=== PATIENT | male | born 1970 | race Caucasian/White ===

== ENCOUNTER 2023-04-23 08:22 | Emergency (ER) | payer BC ==
[2023-04-23] MEDS ORDERED: Sodium Chloride 0.9% 10 ML Syringe FLUSH PRN (08:48)
[2023-04-23] MEDS ORDERED: Sodium Chloride 0.9% 1,000 ML IV ONE (08:48)
[2023-04-23] MEDS ORDERED: Sodium Chloride 0.9% 2.5 ML Syringe FLUSH PRN (08:48)
[2023-04-23] MEDS ORDERED: Ondansetron 4 MG/2 ML SDV IVPUSH ONE (08:50)
[2023-04-23] MEDS ORDERED: Pantoprazole 80 MG in Sodium Chloride 0.9% 10 ML IVPUSH ONE (08:51)
[2023-04-23] MEDS ORDERED: Ketorolac 30 MG/ML SDV IVPUSH ONE (08:51)
[2023-04-23 09:15] LABS: BASOPHILS ABSOLUTE AUTO 0.09 K/uL (0.00-0.20); BASOPHILS PERCENT AUTO 0.8 % (0.0-1.0); EOSINOPHILS ABSOLUTE AUTO 0.13 K/uL (0.00-0.45); EOSINOPHILS PERCENT AUTO 1.2 % (0.0-6.0); HEMATOCRIT 44.6 % (42.0-52.0); HEMOGLOBIN 15.8 g/dL (14.0-18.0); IMMATURE GRAN ABSOLUTE AUTO 0.12 K/uL (0.00-0.05); IMMATURE GRAN PERCENT AUTO 1.1 % (0.0-0.4); LYMPHOCYTES ABSOLUTE AUTO 1.54 K/uL (1.00-4.80); LYMPHOCYTES PERCENT AUTO 14.3 % (24.0-44.0); MEAN CORPUSCULAR HEMOGLOBIN 31.3 pg (28.0-32.0); MEAN CORPUSCULAR HGB CONC 35.4 g/dL (32.0-36.0); MEAN CORPUSCULAR VOLUME 88.5 fL (83.0-99.0); MEAN PLATELET VOLUME 10.1 fL (9.4-12.4); MONOCYTES PERCENT AUTO 7.4 % (0.0-8.0); NEUTROPHILS PERCENT AUTO 75.2 % (41.0-71.0); PLATELET COUNT,PLT 284 K/uL (150-400); RED BLOOD CELL COUNT 5.04 M/uL (4.52-5.90); WHITE BLOOD CELL COUNT,WBC 10.78 K/uL (3.9-11.3)
[2023-04-23 09:45] LABS: INR 0.96 (0.86-1.11); PTT,PARTIAL THROMBOPLSTIN TIME 28.9 SEC (23.9-30.7)
[2023-04-23 09:51] LABS: ALBUMIN 3.9 g/dL (3.4-5.0); BILIRUBIN TOTAL 0.4 mg/dL (0.2-1.0); CALCIUM 9.2 mg/dL (8.5-10.1); CARBON DIOXIDE,CO2 28.8 mmol/L (21.0-32.0); EST CRCL DRUG DOSING (CG) 79.75 mL/min; MAGNESIUM 1.6 mg/dL (1.8-2.4); POTASSIUM,K 4.7 mmol/L (3.5-5.1)
[2023-04-23] MEDS ORDERED: Iopamidol 755 MG/ML 500 ML Multipack Bottle IVPUSH STA (10:23)
[2023-04-23 11:43] LABS: APPEARANCE,URINE CLEAR; BILIRUBIN,URINE NEGATIVE (NEGATIVE); COLOR,URINE YELLOW; GLUCOSE,URINE NEGATIVE (NEGATIVE); KETONES,URINE NEGATIVE (NEGATIVE); LEUKOCYTE ESTERASE,URINE NEGATIVE (NEGATIVE); NITRITE,URINE NEGATIVE (NEGATIVE); OCCULT BLOOD,URINE NEGATIVE (NEGATIVE); PH,URINE 5.5 (5.0-8.0); PROTEIN,URINE NEGATIVE (NEGATIVE); UROBILINOGEN,URINE 0.2 EU/dL (<2.0)
[2023-04-23 13:08] VITALS: BP 136/93; PULSE 104
== END 2023-04-23 13:10 | disposition home or self-care (01) ==
LOC: MW.ED 08:56
DX: K57.32 Diverticulitis of large intestine without perforation or abscess without bleeding (principal)
CPT/HCPCS: 36415; 74177; 80053; 81003; 83690; 83735; 85025; 85610; 85730; 86850; 86900; 86901; 96361; 96374; 96375; 99284; C9113; J1885; J2405; J3490; J7030; Q9967

== ENCOUNTER 2023-08-20 22:35 | Emergency (ER) | payer BC ==
[2023-08-20] MEDS: Sodium Chloride 0.9% 2.5 ML Syringe FLUSH PRN (22:48)
[2023-08-20] MEDS: Sodium Chloride 0.9% 10 ML Syringe FLUSH PRN (22:48)
[2023-08-20 22:56] LABS: BASOPHILS ABSOLUTE AUTO 0.06 K/uL (0.00-0.20); BASOPHILS PERCENT AUTO 0.9 % (0.0-1.0); EOSINOPHILS ABSOLUTE AUTO 0.11 K/uL (0.00-0.45); EOSINOPHILS PERCENT AUTO 1.7 % (0.0-6.0); HEMATOCRIT 41.1 % (42.0-52.0); HEMOGLOBIN 14.7 g/dL (14.0-18.0); IMMATURE GRAN ABSOLUTE AUTO 0.11 K/uL (0.00-0.05); IMMATURE GRAN PERCENT AUTO 1.7 % (0.0-0.4); LYMPHOCYTES ABSOLUTE AUTO 1.82 K/uL (1.00-4.80); LYMPHOCYTES PERCENT AUTO 28.1 % (24.0-44.0); MEAN CORPUSCULAR HEMOGLOBIN 31.1 pg (28.0-32.0); MEAN CORPUSCULAR HGB CONC 35.8 g/dL (32.0-36.0); MEAN CORPUSCULAR VOLUME 87.1 fL (83.0-99.0); MONOCYTES ABSOLUTE AUTO 0.52 K/uL (0.00-0.80); NEUTROPHILS ABSOLUTE AUTO 3.86 K/uL (1.80-7.70); NEUTROPHILS PERCENT AUTO 59.6 % (41.0-71.0); PLATELET COUNT,PLT 268 K/uL (150-400); RED BLOOD CELL COUNT 4.72 M/uL (4.52-5.90); WHITE BLOOD CELL COUNT,WBC 6.48 K/uL (3.9-11.3)
[2023-08-20 23:38] LABS: A/G RATIO 0.9 (0.9-1.6); ALANINE AMINOTRANSFERASE,ALT 61 IU/L (14-63); ALBUMIN 3.2 g/dL (3.4-5.0); ALKALINE PHOSPHATASE 73 U/L (46-116); ASPARTATE AMNIOTRANSFERASE,AST 75 IU/L (15-37); BILIRUBIN TOTAL 0.3 mg/dL (0.2-1.0); BLOOD UREA NITROGEN,BUN 10 mg/dL (7.0-18.0); CALCIUM 8.1 mg/dL (8.5-10.1); CARBON DIOXIDE,CO2 23.3 mmol/L (21.0-32.0); CHLORIDE,CL 104 mmol/L (98-107); CREATININE 1.2 mg/dL (0.8-1.3); ETHANOL BLOOD MEDICAL 5 mg/dL; GLUCOSE RANDOM 141 mg/dL (74-106); LIPASE 30 U/L (16-77); MAGNESIUM 1.6 mg/dL (1.8-2.4); POTASSIUM,K 3.4 mmol/L (3.5-5.1); PROTEIN TOTAL,TP 6.6 g/dL (6.4-8.2); SODIUM,NA 141 mmol/L (136-148); TSH ULTRASENSITIVE 3.46 uIU/mL (0.36-3.74)
[2023-08-20 23:39] LABS: ESTIMATED GFR 74 mL/min (>60)
[2023-08-21] MEDS: Potassium Chloride 10% 20 MEQ/15 ML Soln 15 ML UD Cup PO ONE (00:02)
[2023-08-21] MEDS: Magnesium Sulfate/Water 2 GM in Premix Bag 1 BAG IV ONE (00:02)
[2023-08-21] MEDS: Lactated Ringers 1,000 ML IV ONE (00:33)
[2023-08-21 02:14] VITALS: BP 122/72; PULSE 99
== END 2023-08-21 02:13 | disposition home or self-care (01) ==
LOC: MW.ED 22:35
DX: R00.2 Palpitations (principal)
CPT/HCPCS: 36415; 71046; 80053; 80307; 82947; 83690; 83735; 84443; 84484; 85025; 85379; 96365; 99285; A9270; J3475; J3490; J7120; 93010; 99283

== ENCOUNTER 2023-10-25 07:11 | Day surgery (SDC) | payer BC ==
[2023-10-25] MEDS ORDERED: dexmedeTOMIDine HCl 200 MCG/2 ML SDV IV ONE (07:12)
[2023-10-25] MEDS: Lactated Ringers 1,000 ML IV SCH (07:43)
[2023-10-25] MEDS ORDERED: propofoL 50 ML ONE (09:15)
[2023-10-25] MEDS ORDERED: Propofol 200 MG/20 ML SDV ONE ×2 (09:29→09:40)
[2023-10-25 13:10] VITALS: BP 122/79; PULSE 78
== END 2023-10-25 10:27 | disposition home or self-care (01) ==
LOC: MW.SDS 07:11
PROVIDERS: ATTEND Surgery
DX: K63.5 Polyp of colon (principal); K21.9 Gastro-esophageal reflux disease without esophagitis; K57.30 Diverticulosis of large intestine without perforation or abscess without bleeding; I10 Essential (primary) hypertension; Z79.82 Long term (current) use of aspirin; Z79.899 Other long term (current) drug therapy
CPT/HCPCS: 43239; 45380; J2704; J7120; 00813; J3490

== ENCOUNTER 2024-03-25 08:14 | Emergency (ER) | payer BC ==
[2024-03-25] MEDS ORDERED: Sodium Chloride 0.9% 2.5 ML Syringe FLUSH PRN (08:34)
[2024-03-25] MEDS: Ketorolac 30 MG/ML SDV IVPUSH ONE (09:14)
[2024-03-25] MEDS: Sodium Chloride 0.9% 10 ML Syringe FLUSH PRN (09:15)
[2024-03-25] MEDS: Sodium Chloride 0.9% 1,000 ML IV ONE (09:15)
[2024-03-25 09:27] LABS: BASOPHILS ABSOLUTE AUTO 0.06 K/uL (0.00-0.20); BASOPHILS PERCENT AUTO 0.6 % (0.0-1.0); EOSINOPHILS ABSOLUTE AUTO 0.04 K/uL (0.00-0.45); EOSINOPHILS PERCENT AUTO 0.4 % (0.0-6.0); HEMATOCRIT 42.4 % (42.0-52.0); HEMOGLOBIN 14.9 g/dL (14.0-18.0); IMMATURE GRAN PERCENT AUTO 0.9 % (0.0-0.4); LYMPHOCYTES ABSOLUTE AUTO 1.05 K/uL (1.00-4.80); LYMPHOCYTES PERCENT AUTO 9.7 % (24.0-44.0); MEAN CORPUSCULAR HEMOGLOBIN 30.4 pg (28.0-32.0); MEAN CORPUSCULAR HGB CONC 35.1 g/dL (32.0-36.0); MEAN CORPUSCULAR VOLUME 86.5 fL (83.0-99.0); MEAN PLATELET VOLUME 10.2 fL (9.4-12.4); MONOCYTES ABSOLUTE AUTO 0.65 K/uL (0.00-0.80); NEUTROPHILS ABSOLUTE AUTO 8.87 K/uL (1.80-7.70); NEUTROPHILS PERCENT AUTO 82.4 % (41.0-71.0); PLATELET COUNT,PLT 274 K/uL (150-400); WHITE BLOOD CELL COUNT,WBC 10.77 K/uL (3.9-11.3)
[2024-03-25 09:29] LABS: APPEARANCE,URINE CLEAR; BILIRUBIN,URINE NEGATIVE (NEGATIVE); COLOR,URINE YELLOW; GLUCOSE,URINE NEGATIVE (NEGATIVE); KETONES,URINE NEGATIVE (NEGATIVE); LEUKOCYTE ESTERASE,URINE NEGATIVE (NEGATIVE); NITRITE,URINE NEGATIVE (NEGATIVE); OCCULT BLOOD,URINE NEGATIVE (NEGATIVE); PH,URINE 6.5 (5.0-8.0); PROTEIN,URINE NEGATIVE (NEGATIVE); UROBILINOGEN,URINE 0.2 EU/dL (<2.0)
[2024-03-25 10:01] LABS: A/G RATIO 1.2 (0.9-1.6); ALBUMIN 3.8 g/dL (3.4-5.0); BILIRUBIN TOTAL 0.3 mg/dL (0.2-1.0); CALCIUM 8.7 mg/dL (8.5-10.1); EST CRCL DRUG DOSING (CG) 78.86 mL/min; POTASSIUM,K 4.4 mmol/L (3.5-5.1); PROTEIN TOTAL,TP 7.1 g/dL (6.4-8.2)
[2024-03-25 10:15] LABS: CARBON DIOXIDE,CO2 28.4 mmol/L (21.0-32.0)
[2024-03-25 10:58] VITALS: BP 131/89; PULSE 78
== END 2024-03-25 10:57 | disposition home or self-care (01) ==
LOC: MW.ED 08:14
DX: R10.9 Unspecified abdominal pain (principal); I10 Essential (primary) hypertension; E66.9 Obesity, unspecified; Z87.891 Personal history of nicotine dependence; Z75.8 Other problems related to medical facilities and other health care
CPT/HCPCS: 36415; 74176; 80053; 81003; 83690; 85025; 96361; 96374; 99284; J1885; J3490; J7030

== ENCOUNTER 2024-10-11 17:39 | Emergency (ER) | payer BC ==
[2024-10-11] MEDS: Ketorolac 30 MG/ML SDV IVPUSH ONE (18:12)
[2024-10-11 18:17] LABS: BASOPHILS ABSOLUTE AUTO 0.06 K/uL (0.00-0.20); BASOPHILS PERCENT AUTO 0.7 % (0.0-1.0); EOSINOPHILS ABSOLUTE AUTO 0.13 K/uL (0.00-0.45); EOSINOPHILS PERCENT AUTO 1.5 % (0.0-6.0); HEMATOCRIT 42.9 % (42.0-52.0); HEMOGLOBIN 15.2 g/dL (14.0-18.0); IMMATURE GRAN ABSOLUTE AUTO 0.06 K/uL (0.00-0.05); IMMATURE GRAN PERCENT AUTO 0.7 % (0.0-0.4); LYMPHOCYTES ABSOLUTE AUTO 1.62 K/uL (1.00-4.80); LYMPHOCYTES PERCENT AUTO 18.8 % (24.0-44.0); MEAN CORPUSCULAR HEMOGLOBIN 30.5 pg (28.0-32.0); MEAN CORPUSCULAR HGB CONC 35.4 g/dL (32.0-36.0); MEAN CORPUSCULAR VOLUME 86.1 fL (83.0-99.0); MEAN PLATELET VOLUME 10.2 fL (9.4-12.4); MONOCYTES ABSOLUTE AUTO 0.58 K/uL (0.00-0.80); MONOCYTES PERCENT AUTO 6.7 % (0.0-8.0); NEUTROPHILS ABSOLUTE AUTO 6.18 K/uL (1.80-7.70); NEUTROPHILS PERCENT AUTO 71.6 % (41.0-71.0); PLATELET COUNT,PLT 237 K/uL (150-400); RED BLOOD CELL COUNT 4.98 M/uL (4.52-5.90); WHITE BLOOD CELL COUNT,WBC 8.63 K/uL (3.9-11.3)
[2024-10-11 18:53] LABS: A/G RATIO 1.3 (0.9-1.6); BILIRUBIN TOTAL 0.5 mg/dL (0.2-1.0); CALCIUM 8.6 mg/dL (8.5-10.1); CARBON DIOXIDE,CO2 27.8 mmol/L (21.0-32.0); CREATININE 1.3 mg/dL (0.8-1.3); EST CRCL DRUG DOSING (CG) 59.98 mL/min; POTASSIUM,K 3.8 mmol/L (3.5-5.1); PROTEIN TOTAL,TP 7.1 g/dL (6.4-8.2)
[2024-10-11] MEDS: Iopamidol 755 MG/ML 500 ML Multipack Bottle IVPUSH ONE (19:35)
[2024-10-11] MEDS: Cyclobenzaprine 10 MG Tab PO ONE (20:29)
[2024-10-11 20:32] VITALS: BP 121/89; PULSE 101
== END 2024-10-11 20:32 | disposition home or self-care (01) ==
LOC: MW.ED 17:39
DX: M54.2 Cervicalgia (principal); I10 Essential (primary) hypertension; E66.9 Obesity, unspecified; Z75.3 Unavailability and inaccessibility of health-care facilities; Z79.899 Other long term (current) drug therapy; Z68.37 Body mass index [BMI] 37.0-37.9, adult
CPT/HCPCS: 36415; 70491; 71045; 80053; 84443; 84484; 85025; 93005; 96374; 99285; J1885; Q9967; 93010; 99284

== ENCOUNTER 2025-03-13 11:42 | Emergency (ER) | payer BC ==
[2025-03-13 12:22] LABS: BASOPHILS ABSOLUTE AUTO 0.10 K/uL (0.00-0.20); BASOPHILS PERCENT AUTO 0.9 % (0.0-1.0); EOSINOPHILS ABSOLUTE AUTO 0.13 K/uL (0.00-0.45); EOSINOPHILS PERCENT AUTO 1.1 % (0.0-6.0); IMMATURE GRAN ABSOLUTE AUTO 0.12 K/uL (0.00-0.05); IMMATURE GRAN PERCENT AUTO 1.0 % (0.0-0.4); LYMPHOCYTES ABSOLUTE AUTO 1.77 K/uL (1.00-4.80); LYMPHOCYTES PERCENT AUTO 15.4 % (24.0-44.0); MEAN PLATELET VOLUME 9.9 fL (9.4-12.4); MONOCYTES ABSOLUTE AUTO 0.84 K/uL (0.00-0.80); MONOCYTES PERCENT AUTO 7.3 % (0.0-8.0); NEUTROPHILS ABSOLUTE AUTO 8.55 K/uL (1.80-7.70); NEUTROPHILS PERCENT AUTO 74.3 % (41.0-71.0); NRBC ABSOLUTE 0.00 K/uL (0.00-0.02); NRBC PERCENT 0.0 /100WBC (0.0-0.2); PLATELET COUNT,PLT 290 K/uL (150-400); RED BLOOD CELL COUNT 4.99 M/uL (4.52-5.90); WHITE BLOOD CELL COUNT,WBC 11.51 K/uL (3.9-11.3)
[2025-03-13 12:35] LABS: INR 0.95 (0.86-1.11)
[2025-03-13 13:00] LABS: A/G RATIO 1.1 (0.9-1.6); ALANINE AMINOTRANSFERASE,ALT 44.0 IU/L (14-63); ASPARTATE AMNIOTRANSFERASE,AST 21.0 IU/L (15-37); BILIRUBIN TOTAL 0.4 mg/dL (0.2-1.0); BLOOD UREA NITROGEN,BUN 9.0 mg/dL (7.0-18.0); CARBON DIOXIDE,CO2 28.3 mmol/L (21.0-32.0); CHLORIDE,CL 102.0 mmol/L (98-107); CREATININE 1.0 mg/dL (0.8-1.3); EST CRCL DRUG DOSING (CG) 77.98 mL/min; GLUCOSE RANDOM 96.0 mg/dL (74-106); POTASSIUM,K 4.2 mmol/L (3.5-5.1); PROTEIN TOTAL,TP 6.9 g/dL (6.4-8.2); SODIUM,NA 141.0 mmol/L (136-148)
[2025-03-13 13:06] LABS: ESTIMATED GFR 91.0 mL/min (>60)
[2025-03-13] MEDS: Sodium Chloride 0.9% 10 ML Syringe FLUSH PRN (13:13)
[2025-03-13] MEDS: Sodium Chloride 0.9% 2.5 ML Syringe FLUSH PRN (13:13)
[2025-03-13] MEDS: Ondansetron 4 MG/2 ML SDV IVPUSH ONE (13:13)
[2025-03-13] MEDS: Iopamidol 755 Mg/ML 100 ML Bottle IVPUSH ONE (13:29)
[2025-03-13] MEDS: Ketorolac 30 MG/ML SDV IVPUSH ONE ×2 (13:49→15:07)
[2025-03-13] MEDS: droPERidol 2.5 MG/ML SDV IVPUSH ONE (14:49)
[2025-03-13 15:05] VITALS: BP 141/90; PULSE 91
[2025-03-13 15:20] LABS: APPEARANCE,URINE CLEAR; GLUCOSE,URINE NEGATIVE (NEGATIVE); OCCULT BLOOD,URINE NEGATIVE (NEGATIVE)
== END 2025-03-13 15:16 | disposition home or self-care (01) ==
LOC: MW.ED 11:42
DX: K52.9 Noninfective gastroenteritis and colitis, unspecified (principal); R10.32 Left lower quadrant pain; I10 Essential (primary) hypertension; E66.9 Obesity, unspecified; Z68.38 Body mass index [BMI] 38.0-38.9, adult; Z87.19 Personal history of other diseases of the digestive system; Z79.899 Other long term (current) drug therapy
CPT/HCPCS: 36415; 74177; 80053; 81003; 83605; 83690; 85025; 85610; 85652; 86140; 93005; 96361; 96374; 96376; 99284; J1885; J7030; Q9967; 93010

== ENCOUNTER 2025-03-15 01:36 | Emergency (ER) | payer BC ==
[2025-03-15] MEDS ORDERED: Sodium Chloride 0.9% 2.5 ML Syringe FLUSH PRN (03:27)
[2025-03-15] MEDS ORDERED: Sodium Chloride 0.9% 10 ML Syringe FLUSH PRN (03:27)
[2025-03-15 03:52] LABS: BASOPHILS ABSOLUTE AUTO 0.07 K/uL (0.00-0.20); BASOPHILS PERCENT AUTO 1.0 % (0.0-1.0); EOSINOPHILS ABSOLUTE AUTO 0.11 K/uL (0.00-0.45); EOSINOPHILS PERCENT AUTO 1.5 % (0.0-6.0); IMMATURE GRAN ABSOLUTE AUTO 0.05 K/uL (0.00-0.05); IMMATURE GRAN PERCENT AUTO 0.7 % (0.0-0.4); LYMPHOCYTES ABSOLUTE AUTO 1.02 K/uL (1.00-4.80); LYMPHOCYTES PERCENT AUTO 13.9 % (24.0-44.0); MEAN PLATELET VOLUME 9.8 fL (9.4-12.4); MONOCYTES ABSOLUTE AUTO 0.59 K/uL (0.00-0.80); MONOCYTES PERCENT AUTO 8.0 % (0.0-8.0); NEUTROPHILS ABSOLUTE AUTO 5.52 K/uL (1.80-7.70); NEUTROPHILS PERCENT AUTO 74.9 % (41.0-71.0); NRBC ABSOLUTE 0.00 K/uL (0.00-0.02); NRBC PERCENT 0.0 /100WBC (0.0-0.2); PLATELET COUNT,PLT 241 K/uL (150-400); RED BLOOD CELL COUNT 4.71 M/uL (4.52-5.90); WHITE BLOOD CELL COUNT,WBC 7.36 K/uL (3.9-11.3)
[2025-03-15 04:22] LABS: A/G RATIO 1.0 (0.9-1.6); ALANINE AMINOTRANSFERASE,ALT 29.0 IU/L (14-63); ASPARTATE AMNIOTRANSFERASE,AST 18.0 IU/L (15-37); BILIRUBIN TOTAL 0.3 mg/dL (0.2-1.0); BLOOD UREA NITROGEN,BUN 16.0 mg/dL (7.0-18.0); CARBON DIOXIDE,CO2 22.6 mmol/L (21.0-32.0); CHLORIDE,CL 105.0 mmol/L (98-107); CREATININE 1.0 mg/dL (0.8-1.3); EST CRCL DRUG DOSING (CG) 77.98 mL/min; GLUCOSE RANDOM 122.0 mg/dL (74-106); POTASSIUM,K 4.0 mmol/L (3.5-5.1); PRO B-TYPE NATRIUR PEPT,BNPPRO 173.0 pg/mL (0-125); PROTEIN TOTAL,TP 6.5 g/dL (6.4-8.2); SODIUM,NA 138.0 mmol/L (136-148)
[2025-03-15 04:25] LABS: ESTIMATED GFR 91.0 mL/min (>60)
[2025-03-15] MEDS: Magnesium Sulfate 2 GM/50 mL 2 GM in Premix Bag 1 BAG IV ONE (04:35)
[2025-03-15 05:32] VITALS: BP 134/91; PULSE 83
== END 2025-03-15 05:42 | disposition home or self-care (01) ==
LOC: MW.ED 01:36
DX: R51.9 Headache, unspecified (principal); I10 Essential (primary) hypertension; K21.9 Gastro-esophageal reflux disease without esophagitis; E83.42 Hypomagnesemia; E66.9 Obesity, unspecified; Z79.899 Other long term (current) drug therapy; Z68.38 Body mass index [BMI] 38.0-38.9, adult
CPT/HCPCS: 36415; 71046; 80053; 83735; 83880; 84484; 85025; 93005; 96365; 99284; J3475; 93010

== ENCOUNTER 2025-04-12 11:47 | Observation (INO) | payer BC ==
[2025-04-12] MEDS ORDERED: Sodium Chloride 0.9% 2.5 ML Syringe FLUSH PRN ×2 (12:02→13:37)
[2025-04-12] MEDS ORDERED: Sodium Chloride 0.9% 10 ML Syringe FLUSH PRN ×2 (12:02→13:37)
[2025-04-12 12:25] LABS: BASOPHILS ABSOLUTE AUTO 0.07 K/uL (0.00-0.20); BASOPHILS PERCENT AUTO 0.4 % (0.0-1.0); EOSINOPHILS ABSOLUTE AUTO 0.05 K/uL (0.00-0.45); EOSINOPHILS PERCENT AUTO 0.3 % (0.0-6.0); IMMATURE GRAN ABSOLUTE AUTO 0.12 K/uL (0.00-0.05); IMMATURE GRAN PERCENT AUTO 0.8 % (0.0-0.4); LYMPHOCYTES ABSOLUTE AUTO 1.71 K/uL (1.00-4.80); LYMPHOCYTES PERCENT AUTO 10.9 % (24.0-44.0); MEAN PLATELET VOLUME 10.2 fL (9.4-12.4); MONOCYTES ABSOLUTE AUTO 1.10 K/uL (0.00-0.80); MONOCYTES PERCENT AUTO 7.0 % (0.0-8.0); NEUTROPHILS ABSOLUTE AUTO 12.59 K/uL (1.80-7.70); NEUTROPHILS PERCENT AUTO 80.6 % (41.0-71.0); NRBC ABSOLUTE 0.00 K/uL (0.00-0.02); NRBC PERCENT 0.0 /100WBC (0.0-0.2); PLATELET COUNT,PLT 297 K/uL (150-400); RED BLOOD CELL COUNT 5.37 M/uL (4.52-5.90); WHITE BLOOD CELL COUNT,WBC 15.64 K/uL (3.9-11.3)
[2025-04-12] MEDS: Ondansetron 4 MG/2 ML SDV IVPUSH ONE (12:29)
[2025-04-12] MEDS: Iopamidol 755 MG/ML 500 ML Multipack Bottle IVPUSH STA (12:40)
[2025-04-12 12:50] LABS: A/G RATIO 0.9 (0.9-1.6); ALANINE AMINOTRANSFERASE,ALT 47.0 IU/L (14-63); ASPARTATE AMNIOTRANSFERASE,AST 19.0 IU/L (15-37); BILIRUBIN TOTAL 0.8 mg/dL (0.2-1.0); BLOOD UREA NITROGEN,BUN 17.0 mg/dL (7.0-18.0); CARBON DIOXIDE,CO2 28.2 mmol/L (21.0-32.0); CHLORIDE,CL 99.0 mmol/L (98-107); CREATININE 1.1 mg/dL (0.8-1.3); EST CRCL DRUG DOSING (CG) 70.89 mL/min; GLUCOSE RANDOM 128.0 mg/dL (74-106); POTASSIUM,K 3.8 mmol/L (3.5-5.1); PROTEIN TOTAL,TP 8.3 g/dL (6.4-8.2); SODIUM,NA 138.0 mmol/L (136-148)
[2025-04-12 12:51] LABS: ESTIMATED GFR 81.0 mL/min (>60)
[2025-04-12 12:54] LABS: LACTIC ACID 1.2 mmol/L (0.4-2.0)
[2025-04-12] MEDS ORDERED: Ondansetron 4 MG/2 ML SDV IVPUSH PRN (13:46)
[2025-04-12] MEDS: Pantoprazole 40 MG in Sodium Chloride 0.9% 20 ML IVPUSH SCH (14:19)
[2025-04-12] MEDS ORDERED: Naloxone 0.4 MG/ML SDV IVPUSH PRN (15:55)
[2025-04-12] MEDS: Ketorolac 30 MG/ML SDV IVPUSH PRN (22:23)
[2025-04-13 01:17] LABS: APPEARANCE,URINE CLEAR; GLUCOSE,URINE NEGATIVE (NEGATIVE); OCCULT BLOOD,URINE NEGATIVE (NEGATIVE)
[2025-04-13 06:28] LABS: BASOPHILS ABSOLUTE AUTO 0.05 K/uL (0.00-0.20); BASOPHILS PERCENT AUTO 0.5 % (0.0-1.0); EOSINOPHILS ABSOLUTE AUTO 0.15 K/uL (0.00-0.45); EOSINOPHILS PERCENT AUTO 1.6 % (0.0-6.0); IMMATURE GRAN ABSOLUTE AUTO 0.10 K/uL (0.00-0.05); IMMATURE GRAN PERCENT AUTO 1.1 % (0.0-0.4); LYMPHOCYTES ABSOLUTE AUTO 1.05 K/uL (1.00-4.80); LYMPHOCYTES PERCENT AUTO 11.5 % (24.0-44.0); MEAN PLATELET VOLUME 10.4 fL (9.4-12.4); MONOCYTES ABSOLUTE AUTO 1.04 K/uL (0.00-0.80); MONOCYTES PERCENT AUTO 11.4 % (0.0-8.0); NEUTROPHILS ABSOLUTE AUTO 6.74 K/uL (1.80-7.70); NEUTROPHILS PERCENT AUTO 73.9 % (41.0-71.0); NRBC ABSOLUTE 0.00 K/uL (0.00-0.02); NRBC PERCENT 0.0 /100WBC (0.0-0.2); PLATELET COUNT,PLT 242 K/uL (150-400); RED BLOOD CELL COUNT 4.39 M/uL (4.52-5.90); WHITE BLOOD CELL COUNT,WBC 9.13 K/uL (3.9-11.3)
[2025-04-13 07:06] LABS: A/G RATIO 0.8 (0.9-1.6); ALANINE AMINOTRANSFERASE,ALT 40.0 IU/L (14-63); ASPARTATE AMNIOTRANSFERASE,AST 18.0 IU/L (15-37); BILIRUBIN TOTAL 0.7 mg/dL (0.2-1.0); BLOOD UREA NITROGEN,BUN 18.0 mg/dL (7.0-18.0); CARBON DIOXIDE,CO2 28.3 mmol/L (21.0-32.0); CHLORIDE,CL 105.0 mmol/L (98-107); CREATININE 1.0 mg/dL (0.8-1.3); EST CRCL DRUG DOSING (CG) 77.98 mL/min; GLUCOSE RANDOM 100.0 mg/dL (74-106); POTASSIUM,K 4.3 mmol/L (3.5-5.1); PROTEIN TOTAL,TP 6.6 g/dL (6.4-8.2); SODIUM,NA 141.0 mmol/L (136-148)
[2025-04-13 07:09] LABS: ESTIMATED GFR 91.0 mL/min (>60)
[2025-04-13 11:37] VITALS: PULSE 86
[2025-04-13 14:05] VITALS: BP 137/87
== END 2025-04-13 13:45 | disposition home or self-care (01) ==
LOC: MW.ED 11:47 → MW.MS 13:23
PROVIDERS: ADMIT Family Medicine; ATTEND Family Medicine
DX: K57.32 Diverticulitis of large intestine without perforation or abscess without bleeding (principal); I10 Essential (primary) hypertension; E66.9 Obesity, unspecified; Z79.899 Other long term (current) drug therapy
CPT/HCPCS: 36415; 51798; 74177; 80053; 81003; 83605; 83690; 83735; 85025; 87040; 96361; 96374; 99285; A9270; J1885; J2270; J2470; J2543; J7030; Q9967; 96365; 96366; 96375; 96376; 99284; G0378

== ENCOUNTER 2025-05-07 11:51 | Observation (INO) | payer BC ==
[2025-05-07 12:48] LABS: BASOPHILS ABSOLUTE AUTO 0.09 K/uL (0.00-0.20); BASOPHILS PERCENT AUTO 0.6 % (0.0-1.0); EOSINOPHILS ABSOLUTE AUTO 0.05 K/uL (0.00-0.45); EOSINOPHILS PERCENT AUTO 0.3 % (0.0-6.0); IMMATURE GRAN ABSOLUTE AUTO 0.08 K/uL (0.00-0.05); IMMATURE GRAN PERCENT AUTO 0.5 % (0.0-0.4); LYMPHOCYTES ABSOLUTE AUTO 1.81 K/uL (1.00-4.80); LYMPHOCYTES PERCENT AUTO 12.4 % (24.0-44.0); MEAN PLATELET VOLUME 10.0 fL (9.4-12.4); MONOCYTES ABSOLUTE AUTO 0.85 K/uL (0.00-0.80); MONOCYTES PERCENT AUTO 5.8 % (0.0-8.0); NEUTROPHILS ABSOLUTE AUTO 11.75 K/uL (1.80-7.70); NEUTROPHILS PERCENT AUTO 80.4 % (41.0-71.0); NRBC ABSOLUTE 0.00 K/uL (0.00-0.02); NRBC PERCENT 0.0 /100WBC (0.0-0.2); PLATELET COUNT,PLT 312 K/uL (150-400); RED BLOOD CELL COUNT 5.24 M/uL (4.52-5.90); WHITE BLOOD CELL COUNT,WBC 14.63 K/uL (3.9-11.3)
[2025-05-07 13:21] LABS: A/G RATIO 1.2 (0.9-1.6); ALANINE AMINOTRANSFERASE,ALT 34.0 IU/L (14-63); ASPARTATE AMNIOTRANSFERASE,AST 16.0 IU/L (15-37); BILIRUBIN TOTAL 0.4 mg/dL (0.2-1.0); BLOOD UREA NITROGEN,BUN 19.0 mg/dL (7.0-18.0); CARBON DIOXIDE,CO2 24.8 mmol/L (21.0-32.0); CHLORIDE,CL 102.0 mmol/L (98-107); CREATININE 1.0 mg/dL (0.8-1.3); EST CRCL DRUG DOSING (CG) 77.98 mL/min; GLUCOSE RANDOM 96.0 mg/dL (74-106); POTASSIUM,K 4.0 mmol/L (3.5-5.1); PROTEIN TOTAL,TP 7.8 g/dL (6.4-8.2); SODIUM,NA 139.0 mmol/L (136-148)
[2025-05-07 13:29] LABS: ESTIMATED GFR 91.0 mL/min (>60)
[2025-05-07] MEDS: Ketorolac 30 MG/ML SDV IVPUSH ONE (13:47)
[2025-05-07] MEDS: Ondansetron 4 MG/2 ML SDV IVPUSH ONE (13:47)
[2025-05-07] MEDS: Iopamidol 755 MG/ML 500 ML Multipack Bottle IVPUSH STA (14:11)
[2025-05-07 15:37] LABS: APPEARANCE,URINE CLEAR; GLUCOSE,URINE NEGATIVE (NEGATIVE); OCCULT BLOOD,URINE NEGATIVE (NEGATIVE)
[2025-05-07] MEDS: cefTRIAXone 1 GM in Water For Injection, Sterile 10 ML IVPUSH ONE (16:06)
[2025-05-07] MEDS ORDERED: Ondansetron 4 MG/2 ML SDV IVPUSH PRN (16:08)
[2025-05-07] MEDS ORDERED: Ondansetron 4 MG Tab.DIS PO PRN (16:08)
[2025-05-07] MEDS ORDERED: Sodium Chloride 0.9% 10 ML Syringe FLUSH PRN (16:08)
[2025-05-07] MEDS ORDERED: Sodium Chloride 0.9% 2.5 ML Syringe FLUSH PRN (16:08)
[2025-05-07] MEDS: metroNIDAZOLE/Normal Saline 500 MG in Premix Bag 1 BAG IV ONE (16:11)
[2025-05-07] MEDS: metroNIDAZOLE/Normal Saline 500 MG in Premix Bag 1 BAG IV SCH (23:58)
[2025-05-08 06:17] LABS: BASOPHILS ABSOLUTE AUTO 0.06 K/uL (0.00-0.20); BASOPHILS PERCENT AUTO 0.9 % (0.0-1.0); EOSINOPHILS ABSOLUTE AUTO 0.11 K/uL (0.00-0.45); EOSINOPHILS PERCENT AUTO 1.6 % (0.0-6.0); IMMATURE GRAN ABSOLUTE AUTO 0.04 K/uL (0.00-0.05); IMMATURE GRAN PERCENT AUTO 0.6 % (0.0-0.4); LYMPHOCYTES ABSOLUTE AUTO 1.15 K/uL (1.00-4.80); LYMPHOCYTES PERCENT AUTO 16.4 % (24.0-44.0); MEAN PLATELET VOLUME 10.6 fL (9.4-12.4); MONOCYTES ABSOLUTE AUTO 0.55 K/uL (0.00-0.80); MONOCYTES PERCENT AUTO 7.8 % (0.0-8.0); NEUTROPHILS ABSOLUTE AUTO 5.10 K/uL (1.80-7.70); NEUTROPHILS PERCENT AUTO 72.7 % (41.0-71.0); NRBC ABSOLUTE 0.00 K/uL (0.00-0.02); NRBC PERCENT 0.0 /100WBC (0.0-0.2); PLATELET COUNT,PLT 246 K/uL (150-400); RED BLOOD CELL COUNT 4.92 M/uL (4.52-5.90); WHITE BLOOD CELL COUNT,WBC 7.01 K/uL (3.9-11.3)
[2025-05-08 06:47] LABS: A/G RATIO 1.1 (0.9-1.6); ALANINE AMINOTRANSFERASE,ALT 29.0 IU/L (14-63); ASPARTATE AMNIOTRANSFERASE,AST 21.0 IU/L (15-37); BILIRUBIN TOTAL 0.6 mg/dL (0.2-1.0); BLOOD UREA NITROGEN,BUN 17.0 mg/dL (7.0-18.0); CARBON DIOXIDE,CO2 28.6 mmol/L (21.0-32.0); CHLORIDE,CL 105.0 mmol/L (98-107); CREATININE 1.0 mg/dL (0.8-1.3); EST CRCL DRUG DOSING (CG) 77.98 mL/min; GLUCOSE RANDOM 99.0 mg/dL (74-106); PHOSPHORUS 3.8 mg/dL (2.6-4.7); POTASSIUM,K 4.5 mmol/L (3.5-5.1); PROTEIN TOTAL,TP 6.8 g/dL (6.4-8.2); SODIUM,NA 141.0 mmol/L (136-148)
[2025-05-08 07:05] LABS: ESTIMATED GFR 91.0 mL/min (>60)
[2025-05-08 13:23] VITALS: BP 123/73; PULSE 77
[2025-05-08] MEDS ORDERED: cefTRIAXone 1 GM in Water For Injection, Sterile 10 ML IVPUSH SCH (16:00)
== END 2025-05-08 14:37 | disposition home or self-care (01) ==
LOC: MW.ED 11:51 → MW.MS 16:31
PROVIDERS: ADMIT Internal Medicine; ATTEND Internal Medicine
DX: K57.32 Diverticulitis of large intestine without perforation or abscess without bleeding (principal); I10 Essential (primary) hypertension; E66.9 Obesity, unspecified; Z68.30 Body mass index [BMI] 30.0-30.9, adult; Z79.899 Other long term (current) drug therapy
CPT/HCPCS: 36415; 74177; 80053; 81003; 83690; 83735; 84100; 85025; 86140; 96361; 96365; 96366; 96375; 96376; 99285; A9270; G0378; J0696; J1171; J1836; J1885; J2270; J2405; J7030; Q9967; 99284

== ENCOUNTER 2025-05-14 04:50 | Emergency (ER) | payer BC ==
[2025-05-14 05:26] LABS: BASOPHILS ABSOLUTE AUTO 0.10 K/uL (0.00-0.20); BASOPHILS PERCENT AUTO 1.1 % (0.0-1.0); EOSINOPHILS ABSOLUTE AUTO 0.13 K/uL (0.00-0.45); EOSINOPHILS PERCENT AUTO 1.5 % (0.0-6.0); IMMATURE GRAN ABSOLUTE AUTO 0.09 K/uL (0.00-0.05); IMMATURE GRAN PERCENT AUTO 1.0 % (0.0-0.4); LYMPHOCYTES ABSOLUTE AUTO 1.42 K/uL (1.00-4.80); LYMPHOCYTES PERCENT AUTO 16.3 % (24.0-44.0); MEAN PLATELET VOLUME 10.1 fL (9.4-12.4); MONOCYTES ABSOLUTE AUTO 0.88 K/uL (0.00-0.80); MONOCYTES PERCENT AUTO 10.1 % (0.0-8.0); NEUTROPHILS ABSOLUTE AUTO 6.09 K/uL (1.80-7.70); NEUTROPHILS PERCENT AUTO 70.0 % (41.0-71.0); NRBC ABSOLUTE 0.00 K/uL (0.00-0.02); NRBC PERCENT 0.0 /100WBC (0.0-0.2); PLATELET COUNT,PLT 270 K/uL (150-400); RED BLOOD CELL COUNT 5.36 M/uL (4.52-5.90); WHITE BLOOD CELL COUNT,WBC 8.71 K/uL (3.9-11.3)
[2025-05-14 05:37] LABS: A/G RATIO 1.1 (0.9-1.6); BILIRUBIN TOTAL 0.4 mg/dL (0.2-1.0); BLOOD UREA NITROGEN,BUN 15.0 mg/dL (7.0-18.0); CARBON DIOXIDE,CO2 25.9 mmol/L (21.0-32.0); CHLORIDE,CL 101.0 mmol/L (98-107); CREATININE 1.2 mg/dL (0.8-1.3); EST CRCL DRUG DOSING (CG) 64.98 mL/min; GLUCOSE RANDOM 113.0 mg/dL (74-106); POTASSIUM,K 4.7 mmol/L (3.5-5.1); PROTEIN TOTAL,TP 7.9 g/dL (6.4-8.2); SODIUM,NA 135.0 mmol/L (136-148)
[2025-05-14 05:38] LABS: ESTIMATED GFR 73.0 mL/min (>60)
[2025-05-14 05:48] LABS: ALANINE AMINOTRANSFERASE,ALT 146.0 IU/L (14-63); ASPARTATE AMNIOTRANSFERASE,AST 76.0 IU/L (15-37)
[2025-05-14] MEDS: droPERidol 2.5 MG/ML SDV IVPUSH ONE (06:03)
[2025-05-14 07:08] VITALS: BP 137/86; PULSE 84
== END 2025-05-14 07:09 | disposition home or self-care (01) ==
LOC: MW.ED 04:50
DX: G89.29 Other chronic pain (principal); R10.31 Right lower quadrant pain; R10.32 Left lower quadrant pain; R74.01 Elevation of levels of liver transaminase levels; I10 Essential (primary) hypertension; E66.9 Obesity, unspecified; Z87.19 Personal history of other diseases of the digestive system; Z87.891 Personal history of nicotine dependence; Z79.899 Other long term (current) drug therapy; Z68.37 Body mass index [BMI] 37.0-37.9, adult
CPT/HCPCS: 36415; 80053; 80307; 83605; 85025; 85652; 86140; 96361; 96374; 99284; J1790; J7030; 99283